=== PATIENT | female | born 1945 | race Caucasian/White ===

== ENCOUNTER → 2016-10-29 | Outpatient (REF) | payer MEDICARE ==
[2016-10-29 14:04] LABS: ALBUMIN 3.6 GM/DL (3.2-5.2); ALBUMIN/GLOBULIN RATIO 1.03 (1.00-1.93); ALKALINE PHOSPHATASE 89 U/L (45-117); ALT/SGPT 25 U/L (12-78); ANION GAP 10 MEQ/L (8-16); AST/SGOT 15 U/L (15-37); BILIRUBIN,TOTAL 0.5 MG/DL (0.2-1.0); BLOOD UREA NITROGEN 26 MG/DL (7-18); CALCIUM LEVEL 8.9 MG/DL (8.8-10.2); CARBON DIOXIDE LEVEL 24 MEQ/L (21-32); CHLORIDE LEVEL 110 MEQ/L (98-107); CHOLESTEROL LEVEL 153 MG/DL (<200); CREATININE FOR GFR 0.79 MG/DL (0.55-1.02); GLOMERULAR FILTRATION RATE > 60.0 (>45); GLUCOSE, FASTING 104 MG/DL (80-110); POTASSIUM SERUM 4.6 MEQ/L (3.5-5.1); SODIUM LEVEL 144 MEQ/L (136-145); TOTAL PROTEIN 7.1 GM/DL (6.4-8.2); TRIGLYCERIDES LEVEL 138 MG/DL (<150)
== END ==
LOC: M SFHCLACO 08:10
PROVIDERS: ATTEND Physician Assistant
DX: E78.2 Mixed hyperlipidemia (principal); Z79.899 Other long term (current) drug therapy

== ENCOUNTER → 2017-01-07 | Outpatient (CLI) | payer MEDICARE ==
--- NOTE | 2017-01-07 15:23 | REPMRS ---
Patient History The patient states she had a clinical breast exam in 12/2016. Patient is postmenopausal. Took hormonal contraceptives for 1 year. Digital Woman Screen Mammo: January 07, 2017 - Exam #: [id number] Bilateral CC and MLO view(s) were taken. Technologist: Cortney Carvajal, Technologist Prior study comparison: January 04, 2016, digital woman screen mammo performed at [facility] to [facility]. January 03, 2015, digital woman screen mammo performed at [facility] to [facility]. FINDINGS: There are scattered fibroglandular densities. There has been no change in the appearance of the mammogram from the prior studies. There is a mild amount of residual fibroglandular tissue which is fairly symmetric. There is no interval development of dominant mass, architectural distortion, or clustered microcalcification suggestive of malignancy. ASSESSMENT: BI-RADS/ACR category 1 mammogram. Negative. Recommendation Routine screening mammogram in 1 year (for women over age 40). This mammogram was interpreted with the aid of an FDA-approved computer-aided dectection system. Electronically Signed By: Michael Hunt MD 01/07/17 [id number]
--- NOTE | 2017-01-09 11:29 | DEXA ---
AP SPINE L1 - L4 1.334 1.1 2.8 LT FEMUR TOTAL 0.716 -2.3 -0.9 RT FEMUR TOTAL 0.642 -2.9 -1.5 TOTAL BODY TOTAL OTHER DUAL FEMUR FRAX* ASSESSMENT Risk factors: 10 year probability of fracture Major osteoporotic fracture % Hip fracture % COMMENTS: Normal bone densitometry of the spine. There is low bone density of the left hip. There is osteoporosis of the right hip. The increased density of the spine does represent a significant change. The decreased density of the left hip does represent a significant change. The decreased density of the right hip does not represent a significant change. The density of the spine has increased 43.0% since the initial exam on 2005. The spine density has increased 5.0% since the most recent exam on 01/03/2015. The density of the left hip has increased 12.8% since the initial exam on 2005. The density of the left hip has decreased 3.2% since the most recent exam on 11/2014. The density of the right hip has increased 1.6% since the initial exam on 2005. The density of the right hip has decreased 0.5% since the most recent exam on FOLLOW-UP: Recommendation for the next bone density exam: 2 years. OLAYINKA
== END ==
LOC: M WHC 13:06
PROVIDERS: ATTEND Nurse Practitioner Women's Health
DX: Z01.419 Encounter for gynecological examination (general) (routine) without abnormal findings (principal); Z12.31 Encounter for screening mammogram for malignant neoplasm of breast; Z78.0 Asymptomatic menopausal state; M81.0 Age-related osteoporosis without current pathological fracture; Z12.12 Encounter for screening for malignant neoplasm of rectum; Z92.0 Personal history of contraception
CPT/HCPCS: 77080; 82270; G0101; G0202

== ENCOUNTER → 2017-04-28 | Outpatient (CLI) | payer MEDICARE | LOC: M ADAMS 14:28 | DX: M25.552 Pain in left hip (principal) | CPT/HCPCS: 73502 ==

== ENCOUNTER → 2017-05-10 | Outpatient (REF) | payer MEDICARE ==
[2017-05-10 18:09] LABS: ALBUMIN 3.7 GM/DL (3.2-5.2); ALBUMIN/GLOBULIN RATIO 1.09 (1.00-1.93); ALKALINE PHOSPHATASE 121 U/L (45-117); ALT/SGPT 18 U/L (12-78); ANION GAP 9 MEQ/L (8-16); AST/SGOT 10 U/L (7-37); BILIRUBIN,TOTAL 0.4 MG/DL (0.2-1.0); BLOOD UREA NITROGEN 25 MG/DL (7-18); CALCIUM LEVEL 8.6 MG/DL (8.8-10.2); CARBON DIOXIDE LEVEL 27 MEQ/L (21-32); CHLORIDE LEVEL 108 MEQ/L (98-107); CHOLESTEROL LEVEL 144 MG/DL (<200); CHOLESTEROL RISK RATIO 3.272 (<5); CREATININE FOR GFR 0.82 MG/DL (0.55-1.30); GLOMERULAR FILTRATION RATE > 60.0 (>39); GLUCOSE, FASTING 112 MG/DL (70-100); HDL CHOLESTEROL 44 MG/DL (>40); LDL CHOLESTEROL 66.2 MG/DL (<100); NON-HDL-C 100 MG/DL; POTASSIUM SERUM 4.7 MEQ/L (3.5-5.1); SODIUM LEVEL 144 MEQ/L (136-145); TOTAL PROTEIN 7.1 GM/DL (6.4-8.2); TRIGLYCERIDES LEVEL 169 MG/DL (<150)
[2017-05-10 18:22] LABS: ESTIMATED AVERAGE GLUCOSE 148 MG/DL (60-110); HEMOGLOBIN A1c 6.8 %
== END ==
LOC: M LABDRWAD 09:37
DX: I10 Essential (primary) hypertension (principal); E78.2 Mixed hyperlipidemia; E11.9 Type 2 diabetes mellitus without complications
CPT/HCPCS: 80053

== ENCOUNTER → 2017-11-25 | Outpatient (REF) | payer MEDICARE ==
[2017-11-25 13:12] LABS: ALBUMIN 3.7 GM/DL (3.2-5.2); ALBUMIN/GLOBULIN RATIO 1.03 (1.00-1.93); ALKALINE PHOSPHATASE 83 U/L (45-117); ALT/SGPT 25 U/L (12-78); ANION GAP 8 MEQ/L (8-16); AST/SGOT 14 U/L (7-37); BILIRUBIN,TOTAL 0.4 MG/DL (0.2-1.0); BLOOD UREA NITROGEN 27 MG/DL (7-18); CALCIUM LEVEL 8.9 MG/DL (8.8-10.2); CARBON DIOXIDE LEVEL 24 MEQ/L (21-32); CHLORIDE LEVEL 110 MEQ/L (98-107); CHOLESTEROL LEVEL 126 MG/DL (<200); CREATININE FOR GFR 0.93 MG/DL (0.55-1.30); GLOMERULAR FILTRATION RATE > 60.0 (>39); GLUCOSE, FASTING 110 MG/DL (70-100); HDL CHOLESTEROL 43 MG/DL (>40); LDL CHOLESTEROL 58 MG/DL (<100); NON-HDL-C 83 MG/DL; POTASSIUM SERUM 4.7 MEQ/L (3.5-5.1); SODIUM LEVEL 142 MEQ/L (136-145); TOTAL PROTEIN 7.3 GM/DL (6.4-8.2); TRIGLYCERIDES LEVEL 125 MG/DL (<150)
[2017-11-25 13:22] LABS: ESTIMATED AVERAGE GLUCOSE 134 MG/DL (60-110); HEMOGLOBIN A1c 6.3 %
== END ==
LOC: M SFHCADAM 08:11
DX: E11.9 Type 2 diabetes mellitus without complications (principal); I10 Essential (primary) hypertension; E78.2 Mixed hyperlipidemia
CPT/HCPCS: 80053

== ENCOUNTER → 2018-01-08 | Outpatient (CLI) | payer MEDICARE | LOC: M WHC 13:10 | DX: Z12.31 Encounter for screening mammogram for malignant neoplasm of breast (principal); Z78.0 Asymptomatic menopausal state; Z92.0 Personal history of contraception; M81.0 Age-related osteoporosis without current pathological fracture; Z92.29 Personal history of other drug therapy | CPT/HCPCS: 77067 ==

== ENCOUNTER → 2018-05-13 | Outpatient (REF) | payer MEDICARE ==
[2018-05-13 11:43] LABS: HEMOGLOBIN A1c 6.5 %
[2018-05-13 11:48] LABS: ALT/SGPT 25 U/L (12-78); BILIRUBIN,TOTAL 0.5 MG/DL (0.2-1.0); BLOOD UREA NITROGEN 27 MG/DL (7-18); CALCIUM LEVEL 8.8 MG/DL (8.8-10.2); CARBON DIOXIDE LEVEL 24 MEQ/L (21-32); CHLORIDE LEVEL 113 MEQ/L (98-107); CHOLESTEROL LEVEL 164 MG/DL (<200); CHOLESTEROL RISK RATIO 3.904 (<5); CREATININE FOR GFR 0.92 MG/DL (0.55-1.30); GLOMERULAR FILTRATION RATE > 60.0 (>39); GLUCOSE, FASTING 117 MG/DL (70-100); HDL CHOLESTEROL 42 MG/DL (>40); LDL CHOLESTEROL 82 MG/DL (<100); NON-HDL-C 122 MG/DL; POTASSIUM SERUM 4.4 MEQ/L (3.5-5.1); SODIUM LEVEL 144 MEQ/L (136-145); TOTAL 25(OH) VITAMIN D 11.8 NG/ML (30.0-100.0); TOTAL PROTEIN 7.6 GM/DL (6.4-8.2); TRIGLYCERIDES LEVEL 200 MG/DL (<150)
== END ==
LOC: M SFHCADAM 07:53
PROVIDERS: ATTEND Physician Assistant
DX: I10 Essential (primary) hypertension (principal); E78.2 Mixed hyperlipidemia; E11.9 Type 2 diabetes mellitus without complications

== ENCOUNTER 2018-08-28 10:48 | Emergency (ER) | payer MEDICARE ==
[~2018-08-28] VITALS: Ht 160 cm; Wt 81.0 kg
[2018-08-28] MEDS ORDERED: DICL75TA PO (11:24)
[2018-08-28] MEDS ORDERED: ONDA8TAB8 PO (11:24)
[2018-08-28] MEDS ORDERED: SIMV40TA2 PO (11:24)
[2018-08-28] MEDS ORDERED: TIZA2TA PO (11:24)
[2018-08-28] MEDS ORDERED: CHLO125TA PO (11:24)
[2018-08-28] MEDS ORDERED: LISI-538 PO (11:24)
[2018-08-28 12:37] LABS: BASO % 0.3 % (0.0-1.0); EOS # 0.1 10^3/uL (0.0-0.50); EOS % 0.6 % (0.0-3.0); HEMATOCRIT 38.8 % (36.0-47.0); HEMOGLOBIN 12.5 g/dl (12.0-15.5); LYMPH # 2.1 10^3/uL (1.5-4.5); LYMPH % 20.8 % (24.0-44.0); MEAN CORPUSCULAR HEMOGLOBIN 31.2 pg (27.0-33.0); MEAN CORPUSCULAR HGB CONC 32.2 g/dl (32.0-36.5); MEAN CORPUSCULAR VOLUME 96.8 fl (80.0-96.0); MONO # 0.6 10^3/uL (0.0-0.8); MONO % 6.3 % (0.0-5.0); NEUTROPHILS # 7.2 10^3/uL (1.8-7.7); NEUTROPHILS % 71.7 % (36.0-66.0); PLATELET COUNT, AUTOMATED 292 10^3/uL (150-450); RED BLOOD COUNT 4.01 10^6/uL (4.00-5.40); WHITE BLOOD COUNT 10.1 10^3/uL (4.0-10.0)
[2018-08-28 13:13] LABS: ALBUMIN 3.6 GM/DL (3.2-5.2); ALT/SGPT 19 U/L (12-78); BILIRUBIN,DIRECT 0.1 MG/DL (0.0-0.2); BILIRUBIN,TOTAL 0.4 MG/DL (0.2-1.0); BLOOD UREA NITROGEN 20 MG/DL (7-18); CALCIUM LEVEL 9.5 MG/DL (8.8-10.2); CARBON DIOXIDE LEVEL 24 MEQ/L (21-32); CHLORIDE LEVEL 110 MEQ/L (98-107); CREATININE FOR GFR 0.83 MG/DL (0.55-1.30); GLOMERULAR FILTRATION RATE > 60.0 (>39); GLUCOSE, FASTING 128 MG/DL (70-100); POTASSIUM SERUM 4.1 MEQ/L (3.5-5.1); SODIUM LEVEL 141 MEQ/L (136-145); TOTAL PROTEIN 7.2 GM/DL (6.4-8.2)
--- NOTE | 2018-08-28 13:13 | REP ---
Clinical: Acute unexplained back pain Technique: Real time miller scale ultrasound examination using curved array transducer. Findings: Abdominal aorta demonstrates moderate atheromatous plaquing without evidence for aneurysm. No periaortic fluid collections are identified. Proximal aorta 2.5 x 2.5 cm. Mid aorta (renal artery level) 1.9 x 2.3 cm. Mid aorta 1.7 x 2.1 cm. Distal aorta 1.7 x 2.2 cm. Right common iliac artery 1.3 cm maximal diameter. Left common iliac artery 1.1 cm maximal diameter. Impression: Atheromatous plaquing without evidence for abdominal aortic aneurysm. Electronically Signed by Doug Alvarez MD 08/28/2018 01:05 P
[2018-08-28 14:05] VITALS: BP 148/71
[2018-08-28] MEDS ORDERED: ULTR50TA8 PO (14:41)
[2018-08-28] MEDS ORDERED: MIRA3350 PO (14:43)
--- NOTE | 2018-08-28 17:41 | ECGEPIP ---
[facility] - ED Test Date: 2018-08-28 Pat Name: SILVIO HOANG Department: Room: - Gender: Female Cardiology Physician Assistant: ct : 1945 Requested By: GIN CASTRO PA-C. Order Number: [id number] Reading MD: Adriana Salgado Measurements Intervals [place] Rate: 63 P: 30 [place]: 139 QRS: QRSD: 77 T: 50 QT: 400 QTc: 412 Interpretive Statements SINUS RHYTHM No prior Electronically Signed on 08-28-2018 17:41:11 EDT by Adriana Salgado
== END 2018-08-28 14:57 | disposition home or self-care (01) ==
LOC: M ED 10:48
DX: M54.40 Lumbago with sciatica, unspecified side (principal); I10 Essential (primary) hypertension; E78.00 Pure hypercholesterolemia, unspecified; M19.90 Unspecified osteoarthritis, unspecified site; Z79.899 Other long term (current) drug therapy; Z86.73 Personal history of transient ischemic attack (TIA), and cerebral infarction without residual deficits

== ENCOUNTER → 2018-09-09 | Outpatient (CLI) | payer MEDICARE ==
[~2018-09-09] MED LIST: CHLO125TA PO; DICL75TA PO; GASTROGRAFIN SOLUTION 30ML (Q9963) As Ordered ONE; ISOVUE-370 76% 100ML VIAL (Q9967) As Ordered ONE; LISI-538 PO; MIRA3350 PO; ONDA8TAB8 PO; SIMV40TA2 PO; TIZA2TA PO; ULTR50TA8 PO
--- NOTE | 2018-09-10 07:35 | REP ---
REASON FOR EXAM: Abdominal pain. CONTRAST: 100 mL Isovue 370. There are no priors. The lung bases are clear. There are no pleural or pericardial effusions. The liver, gallbladder, spleen, adrenal glands are within normal limits. Tiny focal areas of low densities are seen in each renal cortex consistent with tiny simple cysts. These are, for the most part, too small for a precise CT characterization. There is a large low density mass of the pancreatic body which measures approximately 3.4 x 3.5 x 3.7 cm having some peripheral and mild internal contrast enhancement. There is intrapancreatic ductal dilatation proximal to this large mass. There are multiple nonenlarged peripancreatic lymph nodes. The abdominal aorta is within normal limits for the patient's age. There is no evidence of para-aortic adenopathy. There is no free fluid or free air in the abdomen. The bowel loops and their mesenteries are within normal limits. CT PELVIS: The bowel loops and their mesenteries are within normal limits. There is no evidence of a mass or adenopathy. There is sigmoid colon diverticulosis. Bone window technique throughout the exam, shows chronic spinal, hip, and sacroiliac joint degenerative changes. IMPRESSION: 1. 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 2. Tiny probably renal cortical cysts. 3. Other findings as described above. Electronically Signed by Santana Rai DO 09/10/2018 10:19 A
== END ==
LOC: M RAD 14:55
PROVIDERS: ATTEND Physician Assistant
DX: R10.32 Left lower quadrant pain (principal); R10.31 Right lower quadrant pain; G43.A0 Cyclical vomiting, in migraine, not intractable
CPT/HCPCS: 74177; Q9963; Q9967

== ENCOUNTER → 2018-09-14 | Outpatient (REF) | payer MEDICARE ==
[~2018-09-14] MED LIST changes: -GASTROGRAFIN SOLUTION 30ML (Q9963) As Ordered ONE; -ISOVUE-370 76% 100ML VIAL (Q9967) As Ordered ONE
[2018-09-14 19:54] LABS: BASO % 0.4 % (0.0-1.0); EOS # 0.1 10^3/uL (0.0-0.50); EOS % 1.2 % (0.0-3.0); HEMATOCRIT 37.6 % (36.0-47.0); LYMPH # 2.3 10^3/uL (1.5-4.5); LYMPH % 27.5 % (24.0-44.0); MEAN CORPUSCULAR HEMOGLOBIN 30.2 pg (27.0-33.0); MEAN CORPUSCULAR HGB CONC 31.9 g/dl (32.0-36.5); MEAN CORPUSCULAR VOLUME 94.7 fl (80.0-96.0); MONO # 0.8 10^3/uL (0.0-0.8); MONO % 9.9 % (0.0-5.0); NEUTROPHILS % 60.8 % (36.0-66.0); PLATELET COUNT, AUTOMATED 309 10^3/uL (150-450); RED BLOOD COUNT 3.97 10^6/uL (4.00-5.40); WHITE BLOOD COUNT 8.3 10^3/uL (4.0-10.0)
[2018-09-14 20:03] LABS: ALBUMIN 3.4 GM/DL (3.2-5.2); BILIRUBIN,TOTAL 0.2 MG/DL (0.2-1.0); CALCIUM LEVEL 9.7 MG/DL (8.8-10.2); CREATININE FOR GFR 1.01 MG/DL (0.55-1.30); GLOMERULAR FILTRATION RATE 57.5 (>39); POTASSIUM SERUM 4.3 MEQ/L (3.5-5.1); TOTAL PROTEIN 7.1 GM/DL (6.4-8.2)
[2018-09-15 09:57] LABS: CA19-9 TUMOR MARKER,CARBOHYDRA 68.8 U/ML (<35.0)
== END ==
LOC: M SFHCADAM 16:19
PROVIDERS: ATTEND Physician Assistant
DX: K86.89 Other specified diseases of pancreas (principal)